=== PATIENT | female | born 1955 | race Caucasian/White ===

== ENCOUNTER → 2023-07-11 08:08 | Outpatient (REF) | payer OTHER, SELFPAY | LOC: WDC 08:08 | PROVIDERS: ATTENDING PHYSICIAN Family Medicine | DX: Z12.31 Encounter for screening mammogram for malignant neoplasm of breast (principal) | CPT/HCPCS: 77063; 77067 ==

== ENCOUNTER 2023-08-05 13:38 | Emergency (ER) | payer OTHER, SELFPAY ==
[2023-08-05 13:46] VITALS: BP 148/85
--- NOTE | 2023-08-05 14:05 | ED.GENMED ---
History of Present Illness
General
Chief Complaint: Skin Surface Trauma
Source: patient
Exam Limitations: none
Time Seen by Provider: 08/05/23 13:52
Travel History
Have you had any contact with someone who has COVID-19?: No
Do you have any symptoms of coronavirus? Fever > 100 degrees, chills, cough, shortness of breath, sore throat, loss of taste or smell, muscle aches, or headache?: No
History of Present Illness
History of Present Illness:
See MDM
Past History
Past History
ED Past Medical History: HTN
ED Past Surgical History:
Social History
Tobacco: Former smoker
Alcohol: Occasional
Drug: None
Personal:
Living: with family
Phy Exam
Physical Exam
Physical Exam:
See MDM
Course
Orders/Labs/Results
Orders:
Orders
08/05/23 14:02
Amoxicillin 875 mg/Clav 125 mg [Augmentin 875 mg/125 mg] 1 tablet PO NOW STA
Ibuprofen [Motrin] 600 mg PO NOW STA
Tetanus/Diphth/Acelpertussis [Adacel] 0.5 ml IM .ONCE ONE
Foot, Right 3 View [CR Foot - Right Min 3 Views] Urgent
Comment:
Reason For Exam: Mid foot injury
Vital Signs
Initial and Last Documented VS:
Initial Vital Signs
Temp Pulse Resp BP Pulse Ox
98.0 F 74 16 148/85 98
08/05/23 13:46 08/05/23 13:46 08/05/23 13:46 08/05/23 13:46 08/05/23 13:46
Last Documented Vital Signs
Temp Pulse Resp BP Pulse Ox
98.0 F 74 16 148/85 98
08/05/23 13:46 08/05/23 13:46 08/05/23 13:46 08/05/23 13:46 08/05/23 13:46
Procedures
Laceration Closure
Right Middle Dorsal Foot:
Status of Wound: clean
Size of Wound in cm: 2.5
Description of Wound Edges: sharp
Preparation: cleaned with soap & water
Revision/Debridement: routine- no revision
Wound exploration: explored to base- no FB
Type of Closure: Dermabond-skin glue
MDM/Problems Addressed
Differential Diagnosis Includes:
HPI and MDM Narrative:
68-year-old female presenting with right foot injury. Patient states a pair of garden harriet fell over and cut her right foot. Patient was surprised much blood was involved. She came to the hospital. On arrival, the foot was wrapped. When I
unwrapped the foot, the bleeding has completely resolved. There is approximate 2.5 cm linear laceration to dorsum of right foot. Patient has full extension and flexion of her toes. The distal extremity is otherwise neurovascularly intact.
She is unsure about her tetanus vaccination. Will update tetanus and will start Augmentin. Will obtain x-ray to rule out any evidence of fracture. Will ultimately place Dermabond on the cot and discussed follow-up with podiatry if symptoms persist
Physical exam
General: Well appearing and non-toxic
HEENT: protecting airway
Neck: appears supple
CV: No evidence of cyanosis
Resp: No accessory muscle use
Abd: Non-distended
Extremities: Linear 2.5 cm clean laceration to dorsum of right foot. No active bleeding. Distal extremity neurovascular intact. Extension and flexion of toes appear to be intact
Neuro: alert
Psych: Normal affect
Skin: Laceration to right foot
Problems Addressed including Acute and Chronic Conditions affecting care:
1. Foot laceration
Acuity: acute
Prognosis: stable
Details: Given the linear aspect in size, will place Dermabond. Will obtain x-ray to rule out fracture no ligamentous damage appears to be involved but discussed the importance of follow-up with podiatry if symptoms persist. Given that this was a
garden tool, will empirically start Augmentin. Tetanus updated
Updates
X-ray negative for fracture. Steri-Strips and Dermabond placed.
Differential Diagnosis (but not limited to): Foot fracture, laceration, ligamentous injury
Drug therapy (if applicable): OTC meds, please see d/c instruction regarding Rx drugs
Amount and/or Complexity of Data Reviewed
Clinical info obtained from: Patient
External data reviewed: N/A
Labs I independently reviewed (but not limited to): N/A
Radiology: x-ray independently reviewed: Foot x-ray without fracture
Pulse Ox: not hypoxic
EKG independently reviewed: N/A
Front Office Spec: N/A
Critical Care: N/A
Risk of Complication:
Social Determinants of health: Good social support
Discussed with other providers: N/A
Escalation of Care includes Admit/Obs: After being observed in the Emergency Department, pt stable for discharge.
Occasional wrong word or 'sound a like' substitutions may have occurred due to the inherent limitations of voice recognition software. Read the chart carefully and recognize, using context, where substitutions have occurred.
*Critical Care Note
Total Time (30-74mins, 75-104mins- exclusive of procedures): Not Applicable
ED Attending Note
-
Portions of this chart may have been created with voice recognition software.� Occasional wrong word or��sound alike� substitutions may have occurred due to the inherent limitations of voice recognition software.
Discharge Plan
Departure
Patient Disposition: Home (Routine Discharge)
Date of Disposition: 08/05/23
Time of Disposition: 14:48
Patient with high blood pressure during this ER visit?: Yes
Discharge Problem:
Laceration of foot
Instructions: Laceration Repair With Glue (DC), BLOOD PRESSURE
Prescriptions:
New
amoxicillin-pot clavulanate 875-125 mg tablet
1 tab PO BID Qty: 14 0RF
No Action
metoprolol succinate [Toprol XL] 50 MG tablet extended release 24 hr
50 mg PO DAILY
hydrochlorothiazide 25 MG tablet
25 mg PO DAILY
losartan [Cozaar] 100 MG tablet
100 mg PO DAILY
amlodipine [Norvasc] 2.5 MG tablet
2.5 mg PO DAILY
Referrals:
Johnny Alicea DPM [Active] -
Eileen Garcia MD [Family Provider] -
Activity Restrictions/Additional Instructions:
Your wound was fixed with derma-holden. This is a special glue that holds a wound closed similar to stitches. This type of wound closure will eventually fall off by itself and does not need to be removed. You may wash the area very gently, but do not
scrub or pick at the glue. Watch for signs of infection: fever over 100.5�, increasing pain, red streaks around wound, swelling, drainage of pus, or bad smell. If any of these happen, return to ED promptly. All wounds may scar, however you may
reduce the appearance of scarring by avoiding sun exposure to the scar and applying skin moisturizer with spf protection to the scar once the wound is healed.
If symptoms persist, please follow-up with the foot doctor.
Interventions
Interventions:
*Risk Screen - Suicide Last Done: 08/05/23 14:01
*General Assessment Last Done: 08/05/23 14:01
*Neglect/Abuse Screening Last Done: 08/05/23 14:01
*ED COVID-19 Vaccine History Last Done: 08/05/23 14:01
ED-Skin Assessment Last Done: 08/05/23 14:01
Discharge Date and Time
Print Language: [place]
[2023-08-05] MEDS: AUGMENTIN 875 MG/125 MG 1 TABLET PO (14:19)
[2023-08-05] MEDS: MOTRIN 600 MG PO (14:19)
[2023-08-05] MEDS: ADACEL 0.5 ML IM (14:20)
== END 2023-08-05 15:25 | disposition home or self-care (01) ==
LOC: EMR 13:38
PROVIDERS: EMERGENCY PHYSICIAN Student in an Organized Health Care Education/Training Program; FAMILY PHYSICIAN Family Medicine
DX: S91.311A Laceration without foreign body, right foot, initial encounter (principal); X58.XXXA Exposure to other specified factors, initial encounter; Z23 Encounter for immunization; I10 Essential (primary) hypertension; Z87.891 Personal history of nicotine dependence
CPT/HCPCS: 99283; 12001; 90471; 73630; 90715

== ENCOUNTER → 2024-07-16 08:14 | Outpatient (REF) | payer OTHER, SELFPAY | LOC: WDC 08:14 | PROVIDERS: ATTENDING PHYSICIAN Family Medicine | DX: Z12.31 Encounter for screening mammogram for malignant neoplasm of breast (principal) | CPT/HCPCS: 77063; 77067 ==